=== PATIENT | male | born 1975 | race Caucasian/White ===

== ENCOUNTER 2016-09-29 23:05 | Emergency (ER) | payer OTHER ==
[2016-09-30 05:12] LABS: HEMOGLOBIN 16.6 gm/dl (14.0-17.5); RED BLOOD COUNT 5.52 M/UL (4.20-5.50); WHITE BLOOD COUNT 10.4 K/UL (4.5-11.0)
[2016-09-30 05:36] LABS: BUN/CREATININE RATIO 11 (0-10)
[2016-12-23] MEDS ORDERED: BUPROPION XL150 MG PO (08:32)
[2016-12-23] MEDS ORDERED: BUSPIRONE HCL10 MG PO (08:32)
[2016-12-23] MEDS ORDERED: HYDROXYZINE HCL25 MG PO (08:33)
[2016-12-23] MEDS ORDERED: LISINOPRIL5 MG PO (08:34)
[2016-12-23] MEDS ORDERED: LEVOTHYROXINE50 MCG PO (08:34)
[2016-12-23] MEDS ORDERED: METFORMIN HCL1000 MG PO (08:35)
[2016-12-23] MEDS ORDERED: METOPROLOL SUCC50 MG PO (08:36)
[2016-12-23] MEDS ORDERED: MIRTAZAPINE15 MG PO (08:36)
[2016-12-23] MEDS ORDERED: TRAZODONE HCL50 MG PO (08:37)
[2016-12-23] MEDS ORDERED: PRAVASTATIN SOD20 MG PO (08:37)
[2016-12-23] MEDS ORDERED: OMEPRAZOLE20 M1 PO (08:37)
== END 2016-09-30 06:12 | disposition home or self-care (01) ==
LOC: ER1 23:05
PROVIDERS: Family Medicine
DX: R07.81 Pleurodynia (principal); R10.30 Lower abdominal pain, unspecified; E11.9 Type 2 diabetes mellitus without complications; I10 Essential (primary) hypertension
CPT/HCPCS: 36415; 80053; 80061; 82550; 82553; 83874; 84484; 85025; 93005; 99284

== ENCOUNTER → 2016-10-29 | Outpatient (CLI) | payer OTHER ==
[~2016-10-29] MED LIST: BUPROPION XL150 MG PO; BUSPIRONE HCL10 MG PO; HYDROXYZINE HCL25 MG PO; LEVOTHYROXINE50 MCG PO; LISINOPRIL5 MG PO; METFORMIN HCL1000 MG PO; METOPROLOL SUCC50 MG PO; MIRTAZAPINE15 MG PO; OMEPRAZOLE20 M1 PO; PRAVASTATIN SOD20 MG PO; TRAZODONE HCL50 MG PO
== END ==
LOC: KOH-I 08:56
DX: R10.9 Unspecified abdominal pain (principal); K76.0 Fatty (change of) liver, not elsewhere classified
CPT/HCPCS: 76700

== ENCOUNTER → 2016-12-23 | Day surgery (SDC) | payer OTHER ==
[~2016-12-23] VITALS: Ht 185.4 cm; Wt 113.9 kg
== END | disposition home or self-care (01) ==
LOC: OR 12-16 12:00
PROVIDERS: Surgery
PROC: 0DJD8ZZ Inspection of Lower Intestinal Tract, Via Natural or Artificial Opening Endoscopic (ICD-10-PCS; 2016-12-23)
PROC: 0DB48ZX Excision of Esophagogastric Junction, Via Natural or Artificial Opening Endoscopic, Diagnostic (ICD-10-PCS; principal; 2016-12-23 08:45)
PROC: 0DB78ZX Excision of Stomach, Pylorus, Via Natural or Artificial Opening Endoscopic, Diagnostic (ICD-10-PCS; 2016-12-23 08:45)
DX: K29.50 Unspecified chronic gastritis without bleeding (principal); B96.81 Helicobacter pylori [H. pylori] as the cause of diseases classified elsewhere; K20.8 Other esophagitis; K29.80 Duodenitis without bleeding; K21.9 Gastro-esophageal reflux disease without esophagitis; I10 Essential (primary) hypertension; E11.9 Type 2 diabetes mellitus without complications; M19.90 Unspecified osteoarthritis, unspecified site; F41.9 Anxiety disorder, unspecified; F32.9 Major depressive disorder, single episode, unspecified; F17.220 Nicotine dependence, chewing tobacco, uncomplicated; Z79.84 Long term (current) use of oral hypoglycemic drugs; Z79.899 Other long term (current) drug therapy
CPT/HCPCS: 82962; J3010; J7120

== ENCOUNTER → 2016-12-27 | Outpatient (CLI) | payer OTHER | LOC: EXRD 10:24 | DX: M25.559 Pain in unspecified hip (principal); M41.86 Other forms of scoliosis, lumbar region; M47.896 Other spondylosis, lumbar region | CPT/HCPCS: 72100; 73522 ==

== ENCOUNTER 2020-10-15 16:21 | Emergency (ER) | payer OTHER ==
[~2020-10-15 16:21] MED LIST changes: +GLUCOPHAGE 500500 MG PO
[2020-10-15] MEDS ORDERED: TORADOL 10 MG T10 MG PO (17:38)
[2020-10-15] MEDS ORDERED: AUGMENTIN 875-1 EACH PO (17:38)
== END 2020-10-15 18:14 | disposition home or self-care (01) ==
LOC: ER1 16:21
DX: K04.7 Periapical abscess without sinus (principal); I10 Essential (primary) hypertension; E11.9 Type 2 diabetes mellitus without complications; F17.220 Nicotine dependence, chewing tobacco, uncomplicated
CPT/HCPCS: 99282

== ENCOUNTER → 2021-05-03 | Outpatient (CLI) | payer OTHER ==
[~2021-05-03] MED LIST changes: +AUGMENTIN 875-1 EACH PO; +TORADOL 10 MG T10 MG PO
== END ==
LOC: HEART 5 04-24 15:30
DX: I11.9 Hypertensive heart disease without heart failure (principal); R06.02 Shortness of breath; R00.2 Palpitations
CPT/HCPCS: 93306

== ENCOUNTER 2021-06-17 11:10 | Inpatient (IN) | payer OTHER ==
[~2021-06-17] VITALS: Ht 188 cm; Wt 129.3 kg
[~2021-06-17 11:10] MED LIST changes: -BUPROPION XL150 MG PO; -HYDROXYZINE HCL25 MG PO; -LISINOPRIL5 MG PO; +METOPROLOL SUCC25 MG PO; -METOPROLOL SUCC50 MG PO; +TRAZODONE HCL100 MG PO; -TRAZODONE HCL50 MG PO; +VISTARIL50 MG PO; +WELLBUTRIN XL300 MG PO; +ZESTRIL 40 MG T40 MG PO
[2021-06-17 12:16] LABS: RED BLOOD COUNT 5.07 M/UL (4.20-5.50); WHITE BLOOD COUNT 16.4 K/UL (4.5-11.0)
[2021-06-17 12:35] LABS: BUN/CREATININE RATIO 16 (0-10)
[2021-06-17] MEDS ORDERED: TRULICITY1.5 MG/0.5 SQ (15:22)
[2021-06-17] MEDS ORDERED: LANTUS SOL100 UNIT/1 SQ (15:22)
[2021-06-17] MEDS ORDERED: LORATADINE10 MG PO (15:23)
[2021-06-17] MEDS ORDERED: GLIPIZIDE10 MG PO (15:23)
[2021-06-18 06:20] LABS: HEMOGLOBIN 13.9 gm/dl (14.0-17.5); RED BLOOD COUNT 4.71 M/UL (4.20-5.50)
[2021-06-18 06:25] LABS: WHITE BLOOD COUNT 11.7 K/UL (4.5-11.0)
[2021-06-18 15:10] LABS: BUN/CREATININE RATIO 14 (0-10)
[2021-06-19 10:08] LABS: BUN/CREATININE RATIO 11 (0-10)
[2021-06-20 07:26] LABS: HEMOGLOBIN 12.8 gm/dl (14.0-17.5); RED BLOOD COUNT 4.53 M/UL (4.20-5.50)
[2021-06-20 07:27] LABS: WHITE BLOOD COUNT 7.6 K/UL (4.5-11.0)
[2021-06-20 07:45] LABS: BUN/CREATININE RATIO 12 (0-10)
== END 2021-06-20 12:19 | disposition home or self-care (01) | DRG 871 ==
LOC: ER1 11:10 → CDU 14:21 → MED SURG 4 14:21
PROVIDERS: Emergency Medicine; Internal Medicine; Physician Assistant Medical; ADMIT Internal Medicine
DX: A41.89 Other specified sepsis (principal); K85.90 Acute pancreatitis without necrosis or infection, unspecified; E87.1 Hypo-osmolality and hyponatremia; N30.00 Acute cystitis without hematuria; Z20.822 Contact with and (suspected) exposure to COVID-19; E11.9 Type 2 diabetes mellitus without complications; I10 Essential (primary) hypertension; E03.9 Hypothyroidism, unspecified; B96.1 Klebsiella pneumoniae [K. pneumoniae] as the cause of diseases classified elsewhere; Z79.4 Long term (current) use of insulin; Z98.890 Other specified postprocedural states; Z83.3 Family history of diabetes mellitus; Z82.49 Family history of ischemic heart disease and other diseases of the circulatory system; Z80.9 Family history of malignant neoplasm, unspecified; Z72.89 Other problems related to lifestyle
CPT/HCPCS: 36415; 71045; 76705; 80053; 80061; 81001; 82550; 82553; 82962; 83036; 83605; 83690; 83735; 83874; 84132; 84439; 84443; 84484; 85025; 85027; 87040; 87077; 87086; 87186; 93005; 99285; G0480; J1335; J1650; J2543; U0002

== ENCOUNTER 2021-11-20 23:26 | Emergency (ER) | payer OTHER ==
[~2021-11-20 23:26] MED LIST changes: +GLIPIZIDE10 MG PO; +LANTUS SOL100 UNIT/1 SQ; +LORATADINE10 MG PO; +TRULICITY1.5 MG/0.5 SQ
[2021-11-21 03:22] LABS: HEMOGLOBIN 15.5 gm/dl (14.0-17.5); RED BLOOD COUNT 5.25 M/UL (4.20-5.50); WHITE BLOOD COUNT 7.4 K/UL (4.5-11.0)
[2021-11-21 03:25] LABS: BUN/CREATININE RATIO 14 (0-10)
[2021-11-21] MEDS ORDERED: BUTALB-ACETAMI1 EAC1 PO (04:16)
== END 2021-11-21 04:50 | disposition home or self-care (01) ==
LOC: ER1 23:26
PROVIDERS: Family Medicine
DX: R51.9 Headache, unspecified (principal); I10 Essential (primary) hypertension; E11.9 Type 2 diabetes mellitus without complications
CPT/HCPCS: 70450; 80053; 85025; 85652; 86140; 96372; 99284; J2270; J2550

== ENCOUNTER 2021-11-21 21:07 | Emergency (ER) | payer OTHER ==
[~2021-11-21 21:07] MED LIST changes: +BUTALB-ACETAMI1 EAC1 PO
== END 2021-11-22 00:11 | disposition home or self-care (01) ==
LOC: ER1 21:07
DX: H02.534 Eyelid retraction left upper eyelid (principal); I10 Essential (primary) hypertension; E11.9 Type 2 diabetes mellitus without complications; Z79.84 Long term (current) use of oral hypoglycemic drugs
CPT/HCPCS: 70496; 70498; 71045; 99284; Q9967

== ENCOUNTER → 2022-02-25 | Outpatient (CLI) | payer OTHER | LOC: SLEEP 21:30 | DX: G47.33 Obstructive sleep apnea (adult) (pediatric) (principal) | CPT/HCPCS: 95811 ==